=== PATIENT | male | born 1975 | race Caucasian/White ===

== ENCOUNTER → 2018-10-31 | Day surgery (SDC) | payer BC ==
[~2018-10-31] MED LIST: CEFAZOLIN SOD 1 GM/NS 50ML 50 ML IV ONE; DEXAMETHASONE SOD PHOS INJ 4 MG/ML VIAL ONE; FENTANYL CITRATE/PF 100MCG/2 ML INJ ONE; KETOROLAC TROMETHAMINE 30 MG/ML VIAL ONE; LIDOCAINE HCL 2% LOCAL INJ 5 ML SDV VIAL INJ ONE; MIDAZOLAM HCL 2 MG/2 ML VIAL ONE; NAPROXEN250 MG PO; ONDANSETRON HCL INJ 2MG/ML 2ML 2 MG/ML VIAL ONE; PROPOFOL IV EMULSION 10 MG/ML 20 ML VIAL ONE; SEVOFLURANE INHAL SOLN 250 ML PEN BTL ONE
[2018-10-31 08:35] VITALS: BP 117/87
--- NOTE | 2018-10-31 13:29 | Operative Report ---
DATE OF PROCEDURE: 10/31/2018 SURGEON: Sunny Anderson MD STATISTICAL METHODS PROFESSOR: Primitivo Reilly PA-C. PREOPERATIVE DIAGNOSIS: Complex medial meniscal tear, left knee. POSTOPERATIVE DIAGNOSIS: Complex medial meniscal tear, left knee. PROCEDURES: Left knee arthroscopy, partial medial meniscectomy. INDICATIONS: The patient is a 43-year-old gentleman, who has clinic signs and symptoms consistent with a medial meniscal tear in his left knee. He has failed conservative management and would like to proceed with arthroscopic intervention. The risks and benefits of the procedure have been explained. He states he understands and wishes to proceed. PROCEDURE IN DETAIL: The patient was brought to the operating room and placed under general anesthetic. His left lower extremity was prepped and draped in a sterile manner. A preoperative time-out was performed. Extremity had been exsanguinated and a proximal tourniquet was briefly inflated to 300 mmHg. Standard arthroscopy portals were established. The knee was insufflated with sterile saline and systematically inspected. The patellofemoral groove, medial and lateral gutters were unremarkable. The cruciate ligaments were unremarkable. The lateral compartment was inspected and probed. There was no evidence of any meniscal or articular cartilage damage. The medial compartment demonstrated a complex tear of the posterior horn of the medial meniscus. There was both a radial and horizontal component. This was debrided back to a stable margin using a combination of biting forceps and a mechanical shaver. Before and after photographs were taken. The knee was thoroughly irrigated. The arthroscopic instruments were removed and the portal incisions were closed with interrupted nylon stitches. A sterile bandage was applied. There was no blood loss and all needle and sponge counts were correct. Sunny Anderson MD DR/MARY /[id number]
== END | disposition home or self-care (01) ==
LOC: OR 05:08
PROVIDERS: ATTEND Specialist
DX: S83.232A Complex tear of medial meniscus, current injury, left knee, initial encounter (principal); Z87.891 Personal history of nicotine dependence; Z01.810 Encounter for preprocedural cardiovascular examination
CPT/HCPCS: 29881; 93005; J0690; J1100; J1885; J2001; J2250; J2405; J2704; J3010

== ENCOUNTER 2024-07-29 08:45 | Emergency (ER) | payer BC, OTHER ==
[~2024-07-29] VITALS: Ht 175.3 cm; Wt 94.8 kg
[~2024-07-29 08:45] MED LIST changes: -CEFAZOLIN SOD 1 GM/NS 50ML 50 ML IV ONE; -DEXAMETHASONE SOD PHOS INJ 4 MG/ML VIAL ONE; -FENTANYL CITRATE/PF 100MCG/2 ML INJ ONE; -KETOROLAC TROMETHAMINE 30 MG/ML VIAL ONE; -LIDOCAINE HCL 2% LOCAL INJ 5 ML SDV VIAL INJ ONE; -MIDAZOLAM HCL 2 MG/2 ML VIAL ONE; -ONDANSETRON HCL INJ 2MG/ML 2ML 2 MG/ML VIAL ONE; -PROPOFOL IV EMULSION 10 MG/ML 20 ML VIAL ONE; -SEVOFLURANE INHAL SOLN 250 ML PEN BTL ONE
[2024-07-29 09:26] LABS: BASOPHILS # (AUTO) 0.1 (0.0-0.1); BASOPHILS % 0.3 % (0.0-1.0); EOSINOPHILS # (AUTO) 0.1 (0.0-0.4); EOSINOPHILS % 0.5 % (0.0-6.0); HEMATOCRIT 44.7 % (38.2-49.6); HEMOGLOBIN 15.2 g/dL (14.0-18.0); LYMPHOCYTES # (AUTO) 2.1 (1.0-3.2); LYMPHOCYTES % 12.2 % (18.0-39.1); MEAN CORPUSCULAR VOLUME 88.2 fL (81-99); MONOCYTES # (AUTO) 2.2 (0.2-0.8); MONOCYTES % 12.6 % (4.4-11.3); NEUTROPHILS # (AUTO) 12.6 (2.1-6.9); NEUTROPHILS % 73.9 % (38.7-80.0); PLATELET COUNT 300 x10e3/uL (140-360); RED BLOOD COUNT 5.07 x10e6/uL (4.3-5.7); RED CELL DISTRIBUTION WIDTH 13.4 % (11.7-14.4); WHITE BLOOD COUNT 17.02 x10e3/uL (4.8-10.8)
[2024-07-29] MEDS: ONDANSETRON HCL INJ 2MG/ML 2ML 2 MG/ML VIAL IV PRN (09:39)
[2024-07-29] MEDS: DICYCLOMINE HCL 20 MG/2 ML VIAL IM ONE (09:39)
[2024-07-29] MEDS: SODIUM CHLORIDE 0.9% 1000ML 1,000 ML IV STA (09:40)
[2024-07-29] MEDS: KETOROLAC TROMETHAMINE 30 MG/ML VIAL IV STA (09:40)
[2024-07-29 09:56] LABS: BILIRUBIN,URINE NEGATIVE (NEGATIVE); CLARITY,URINE SL CLOUDY (CLEAR); COLOR,URINE YELLOW (YELLOW); GLUCOSE, URINE NEGATIVE (NEGATIVE); KETONES,URINE NEGATIVE (NEGATIVE); LEUKOCYTE ESTERASE ,URINE NEGATIVE (NEGATIVE); NITRITE,URINE POSITIVE (NEGATIVE); PH,URINE 5.5 (5 - 7); PROTEIN,URINE DIPSTICK 1+ (NEGATIVE); URINE UROBILINOGEN 0.2 mg/dL (0.2 - 1)
[2024-07-29 10:00] LABS: ALBUMIN 3.7 g/dL (3.5-5.0); ALBUMIN/GLOBULIN RATIO 0.8 (0.8-2.0); ANION GAP 16.4 mmol/L (8-16); CALCIUM 9.5 mg/dL (8.4-10.2); CREATININE, SERUM 1.55 mg/dL (0.72-1.25); POTASSIUM 4.4 mmol/L (3.5-5.1); TOTAL PROTEIN 8.2 g/dL (6.5-8.1)
[2024-07-29 10:06] LABS: BACTERIA,URINE FEW /HPF; EPITHELIAL CELLS,URINE FEW /LPF; RBC,URINE 0-5 /HPF (0-5); WBC,URINE (MAN) 0-5 /HPF (0-5)
[2024-07-29] MEDS ORDERED: IOPAMIDOL 370 MG/ML 100 ML INFUS..BTL INJ ONE (10:30)
[2024-07-29] MEDS ORDERED: DICYCLOMINE HCL20 MG PO (11:15)
[2024-07-29] MEDS ORDERED: AMOX TR-K CLV1 EAC2 PO (11:15)
[2024-07-29 12:28] VITALS: PULSE 73; RESP 18; TEMP 98.4; O2SAT 99
== END 2024-07-29 12:30 | disposition home or self-care (01) ==
LOC: ER 08:51
DX: R10.32 Left lower quadrant pain (principal); K57.32 Diverticulitis of large intestine without perforation or abscess without bleeding
CPT/HCPCS: 36415; 74177; 80053; 81001; 83690; 85025; 99284; J0500; J1885; J2405; J7030; Q9967